=== PATIENT | male | born 1990 | race African-American/Black ===

== ENCOUNTER 2017-08-21 23:22 | Emergency (ER) | payer MEDICAID, OTHER ==
[2017-08-22] MEDS ORDERED: Ondansetron INJ* 2 MG/ML VIAL IV ONE (01:11)
[2017-08-22] MEDS ORDERED: Morphine INJ* 4 MG/ML 1 ML CARPUJECT IV ONE (01:11)
[2017-08-22] MEDS ORDERED: NS 0.9% 1000 ML* 1,000 ML IV ONE (01:11)
[2017-08-22 02:11] LABS: ABS Basophils 0.1 10^3/ul (0-0.2); ABS Eosinophils 0.1 10^3/ul (0-0.6); ABS Lymphocytes 1.9 10^3/ul (1.0-4.8); ABS Monocytes 0.5 10^3/ul (0-0.8); ABS Neutrophils 6.9 10^3/ul (1.5-7.7); ABS Nucleated RBC 0 10^3/ul; Eosinophil % 0.7 % (0-6); Hematocrit 43 % (42-52); Lymphocyte % 20.5 % (25-47); Mean Corpuscular HGB Conc 33 g/dl (31-36); Mean Corpuscular Hemoglobin 29 pg (27-31); Mean Corpuscular Volume 89 fL (80-94); Mean Platelet Volume 8 um3 (7.4-10.4); Nucleated Red Blood Cells % 0; Platelet Count 196 10^3/ul (150-450); Red Blood Count 4.78 10^6/ul (4.0-5.4); Red Cell Distribution Width 14 % (10.5-15); White Blood Count 9.5 10^3/ul (3.5-10.8)
[2017-08-22 02:27] LABS: INR 0.94 (0.77-1.02)
[2017-08-22] MEDS ORDERED: Iohexol 300* (CONTRAST) 10 ML SDV IV ONE (03:57)
[2017-08-22 06:02] LABS: Urine Appearance Cloudy; Urine Blood Negative (Negative); Urine Color Yellow; Urine Ketones Negative (Negative); Urine Protein Negative (Negative); Urine Specific Gravity 1.029 (1.010-1.030); Urine Urobilinogen Positive (Negative)
--- NOTE | 2017-08-22 06:48 | ED ---
Nichole López Thomas, scribed for Shai Handy on 08/22/17 at 0113 . Abdominal Pain/Male - HPI Summary HPI Summary: The patient is a 26 year old male presenting to the emergency department complaining of umbilical abdominal pain for the last day. The pain is constant and rated 10/10. The patient has treated the symptoms with nothing prior to arrival. The patient denies nausea, vomiting, diarrhea, constipation, fever, and dysuria. - History of Current Complaint Chief Complaint: EDAbdPain Stated Complaint: ABD PAIN Time Seen by Provider: 08/22/17 01:05 Hx Obtained From: Patient Onset/Duration: Lasting Days - 1, Still Present Timing: Constant Severity Currently: Severe Pain Intensity: 10 Pain Scale Used: 0-10 Numeric Location: Umbilical Aggravating Factor(s): Nothing Alleviating Factor(s): Other: - Palpation Associated Signs And Symptoms: Negative: Fever, Constipation, Nausea, Vomiting, Diarrhea, Other - dysuria - Allergies/Home Medications Allergies/Adverse Reactions: Allergies Allergy/AdvReac Type Severity Reaction Status Date / Time No Known Allergies Allergy Verified 11/07/12 07:20 PMH/Surg Hx/FS Hx/Imm Hx Endocrine/Hematology History: Denies: Hx Diabetes Cardiovascular History: Denies: Hx Hypertension, Hx Pacemaker/ICD History: Denies: Hx Dialysis, Hx Renal Disease Sensory History: Denies: Hx Contacts or Glasses, Hx Hearing Aid Opthamlomology History: Denies: Hx Contacts or Glasses Psychiatric History: Denies: Hx Panic Disorder - Surgical History Surgery Procedure, Year, and Place: 2008 RT SHOULDER LABRUM REPAIR CALIF Hx Anesthesia Reactions: No Infectious Disease History: No Infectious Disease History: Denies: Traveled Outside the [place] in Last 30 Days - Family History Known Family History: Negative: Other - gastrointestinal disease - Social History Lives: With Family Substance Use Type: Reports: None Review of Systems Negative: Fever Positive: Abdominal Pain. Negative: Vomiting, Diarrhea, Nausea, Other - constipation Negative: dysuria All Other Systems Reviewed And Are Negative: Yes Physical Exam - Summary Physical Exam Summary: Appearance: Well appearing, no pain distress Skin: warm, dry, reflects adequate perfusion Head/face: normal Eyes: EOMI, YASHIRA ENT: normal Neck: supple, non-tender Respiratory: CTA, breath sounds present Cardiovascular: RRR, pulses symmetrical Abdomen: Soft. He is tender to his right lower quadrant. Bowel: present Musculoskeletal: normal, strength/ROM intact Neuro: normal, sensory motor intact, A&Ox3 Triage Information Reviewed: Yes Vital Signs On Initial Exam: Initial Vitals Temp Pulse Resp BP Pulse Ox 98.1 F 98 20 136/82 98 08/21/17 23:24 08/21/17 23:24 08/21/17 23:24 08/21/17 23:24 08/21/17 23:24 Vital Signs Reviewed: Yes Diagnostics - Vital Signs Vital Signs Temp Pulse Resp BP Pulse Ox 08/21/17 23:24 98.1 F 98 20 136/82 98 - Laboratory Lab Results: Lab Results 08/22/17 08/22/17 08/22/17 Range/Units 01:50 01:50 01:50 WBC 9.5 (3.5-10.8) 10^3/ul RBC 4.78 (4.0-5.4) 10^6/ul Hgb 14.0 (14.0-18.0) g/dl Hct 43 (42-52) % MCV 89 (80-94) fL MCH 29 (27-31) pg MCHC 33 (31-36) g/dl RDW 14 (10.5-15) % Plt Count 196 (150-450) 10^3/ul MPV 8 (7.4-10.4) um3 Neut % (Auto) 73.0 (38-83) % Lymph % (Auto) 20.5 L (25-47) % [place] % (Auto) 5.2 (1-9) % Eos % (Auto) 0.7 (0-6) % Baso % (Auto) 0.6 (0-2) % Absolute Neuts (auto) 6.9 (1.5-7.7) 10^3/ul Absolute Lymphs (auto) 1.9 (1.0-4.8) 10^3/ul Absolute Monos (auto) 0.5 (0-0.8) 10^3/ul Absolute Eos (auto) 0.1 (0-0.6) 10^3/ul Absolute Basos (auto) 0.1 (0-0.2) 10^3/ul Absolute Nucleated RBC 0 10^3/ul Nucleated RBC % 0 INR (Anticoag Therapy) 0.94 (0.77-1.02) APTT 34.1 (26.0-36.3) seconds Sodium 138 (133-145) mmol/L Potassium 3.6 (3.5-5.0) mmol/L Chloride 107 (101-111) mmol/L Carbon Dioxide 26 (22-32) mmol/L Anion Gap 5 (2-11) mmol/L BUN 14 (6-24) mg/dL Creatinine 1.03 (0.67-1.17) mg/dL Est GFR ( Amer) 110.6 (>60) Est GFR (Non-Af Amer) 86.0 (>60) BUN/Creatinine Ratio 13.6 (8-20) Glucose 117 H (70-100) mg/dL Lactic Acid (0.5-2.0) mmol/L Calcium 9.2 (8.6-10.3) mg/dL Total Bilirubin 0.70 (0.2-1.0) mg/dL AST 31 (13-39) U/L ALT 38 (7-52) U/L Alkaline Phosphatase 40 (34-104) U/L Total Protein 7.0 (6.4-8.9) g/dL Albumin 4.4 (3.2-5.2) g/dL Globulin 2.6 (2-4) g/dL Albumin/Globulin Ratio 1.7 (1-3) Lipase 23 (11.0-82.0) U/L Urine Color Urine Appearance Urine pH (5-9) Ur Specific [place] (1.010-1.030) Urine Protein (Negative) Urine Ketones (Negative) Urine Blood (Negative) Urine Nitrate (Negative) Urine Bilirubin (Negative) Urine Urobilinogen (Negative) Ur Leukocyte Esterase (Negative) Urine Glucose (Negative) 08/22/17 08/22/17 Range/Units 01:50 05:40 WBC (3.5-10.8) 10^3/ul RBC (4.0-5.4) 10^6/ul Hgb (14.0-18.0) g/dl Hct (42-52) % MCV (80-94) fL MCH (27-31) pg MCHC (31-36) g/dl RDW (10.5-15) % Plt Count (150-450) 10^3/ul MPV (7.4-10.4) um3 Neut % (Auto) (38-83) % Lymph % (Auto) (25-47) % [place] % (Auto) (1-9) % Eos % (Auto) (0-6) % Baso % (Auto) (0-2) % Absolute Neuts (auto) (1.5-7.7) 10^3/ul Absolute Lymphs (auto) (1.0-4.8) 10^3/ul Absolute Monos (auto) (0-0.8) 10^3/ul Absolute Eos (auto) (0-0.6) 10^3/ul Absolute Basos (auto) (0-0.2) 10^3/ul Absolute Nucleated RBC 10^3/ul Nucleated RBC % INR (Anticoag Therapy) (0.77-1.02) APTT (26.0-36.3) seconds Sodium (133-145) mmol/L Potassium (3.5-5.0) mmol/L Chloride (101-111) mmol/L Carbon Dioxide (22-32) mmol/L Anion Gap (2-11) mmol/L BUN (6-24) mg/dL Creatinine (0.67-1.17) mg/dL Est GFR ( Amer) (>60) Est GFR (Non-Af Amer) (>60) BUN/Creatinine Ratio (8-20) Glucose (70-100) mg/dL Lactic Acid 0.9 (0.5-2.0) mmol/L Calcium (8.6-10.3) mg/dL Total Bilirubin (0.2-1.0) mg/dL AST (13-39) U/L ALT (7-52) U/L Alkaline Phosphatase (34-104) U/L Total Protein (6.4-8.9) g/dL Albumin (3.2-5.2) g/dL Globulin (2-4) g/dL Albumin/Globulin Ratio (1-3) Lipase (11.0-82.0) U/L Urine Color Yellow Urine Appearance Cloudy Urine pH 5.0 (5-9) Ur Specific [place] 1.029 (1.010-1.030) Urine Protein Negative (Negative) Urine Ketones Negative (Negative) Urine Blood Negative (Negative) Urine Nitrate Negative (Negative) Urine Bilirubin Negative (Negative) Urine Urobilinogen Positive H (Negative) Ur Leukocyte Esterase Negative (Negative) Urine Glucose Negative (Negative) Result Diagrams: 08/22/17 01:50 08/22/17 01:50 Lab Statement: Any lab studies that have been ordered have been reviewed, and results considered in the medical decision making process. - CT CT Abd/Pel CT Interpretation: No Acute Changes - 2.7 cm hyperattenuating focus hepatic segment IVB, probably a hemangioma. Borderline hepatomegaly. No bowel obstruction, colitis, diverticulitis, free fluid or free air. Normal appendix. Normal terminal ileum. Unremarkable pancreas, kidneys, and gallbladder. Dr. Handy has reviewed this report. CT Interpretation Completed By: Radiologist Abdominal Pain Fem Course/Dx - Course Assessment/Plan: The patient is a 26 year old male presenting to the emergency department complaining of umbilical abdominal pain for the last day. In the ED course the patient was given IV fluids, morphine, and Zofran. Bloodwork and urinalysis were obtained. CT Abd/Pel shows 2.7 cm hyperattenuating focus hepatic segment IVB, probably a hemangioma. Borderline hepatomegaly. No bowel obstruction, colitis, diverticulitis, free fluid or free air. Normal appendix. Normal terminal ileum. Unremarkable pancreas, kidneys, and gallbladder. The patient is diagnosed with abdominal pain. The patient is instructed to follow up with primary care. Patient is prescribed Protonix. - Diagnoses Differential Diagnosis/HQI/PQRI: Appendicitis, Diverticulitis, Pancreatitis, Renal Colic, Ureteral Stone, Urinary Tract Infection Provider Diagnoses: Abdominal pain Discharge - Discharge Plan Condition: Stable Disposition: HOME Prescriptions: Pantoprazole Sodium [Protonix] 20 mg PO ONCE #30 tab Patient Education Materials: Abdominal Pain (ED) Referrals: Syl Kapoor MD [Primary Care Provider] - 3 Days Additional Instructions: Follow up with Dr. Kapoor in three days. Return to the emergency department for any new or worsening symptoms. The documentation as recorded by the Nichole cohn Thomas accurately reflects the service I personally performed and the decisions made by Ole cruz Emmanuel.
[2017-08-22 06:55] VITALS: BP 117/69
--- NOTE | 2017-08-22 08:20 | RAD ---
Indication: Right lower quadrant tenderness. Contrast: Administered 150.0 ml of OMNIPAQUE 300 mg/ml CT of the abdomen and pelvis was performed after oral and IV contrast administration. Coronal and sagittal reconstructed images were obtained. There are no prior studies available for comparison. The lung bases demonstrate no pleural fluid, nodules or masses. Heart is of normal size without evidence of pericardial effusion. Liver is normal in size. There is a hyperdense lesion in the medial segment of the left lobe of liver just adjacent to the falciform ligament likely representing a hemangioma. Ultrasound could BE performed to confirm this impression if clinically warranted. No other lesions are noted. No intrahepatic ductal dilatation is noted. The gallbladder demonstrates no gallstones, pericholecystic fluid or wall thickening. The common duct is not dilated. The pancreas demonstrates no mass or pancreatic duct dilatation. The spleen is normal in size. No adrenal masses are noted. The kidneys demonstrate symmetric nephrograms without focal lesions. No hydronephrosis is noted. Aorta and inferior vena cava are unremarkable. No dilated loops of bowel are noted. No retroperitoneal adenopathy is noted. CT of the pelvis demonstrates normal appearing appendix. No dilated loops of bowel are noted. Prostate is unremarkable. No hernias are noted. Terminal ileum is unremarkable. No free fluid is identified. The bony structures are otherwise unremarkable. IMPRESSION: Normal appearing appendix. Hypervascular lesion in the medial segment of left lobe of liver just adjacent to the gallbladder fossa likely represents a hemangioma. Correlation with ultrasound may BE helpful if clinically warranted. No other masses or fluid collections are noted.
== END 2017-08-22 06:57 | disposition home or self-care (01) ==
LOC: ED 23:22
DX: R10.31 Right lower quadrant pain (principal); R10.33 Periumbilical pain
CPT/HCPCS: 36415; 74177; 80053; 81003; 83605; 83690; 85025; 85610; 85730; 96361; 96374; 96375; 99283; J2270; J2405; Q9967

== ENCOUNTER 2017-11-10 16:36 | Emergency (ER) | payer MEDICAID ==
[2017-11-10 17:51] LABS: Urine Appearance Cloudy; Urine Blood 3+ (Negative); Urine Ketones Negative (Negative); Urine Protein 1+(30 mg/dL) (Negative); Urine Specific Gravity 1.011 (1.010-1.030); Urine Urobilinogen Negative (Negative)
[2017-11-10 18:01] LABS: Urine Color Red
[2017-11-10] MEDS ORDERED: Ciprofloxacin TAB* 500 MG PO ONE ×2 (18:35)
--- NOTE | 2017-11-10 18:44 | ED ---
Mejia López Jennifer, scribed for Bryan Jimenez MD on 11/10/17 at 1737 . GI/ HPI - HPI Summary HPI Summary: The patient is a 27 year old male who presents hematuria and difficulty urinating after two surgeries on his bladder this week. The patient reports that two weeks ago, he was sent from [facility] to [place] for surgery. He was told at [place] he had two bleeding spots in his bladder and one in his urethra from a catheterization. The patient has had a catheter until six days ago. However, five days ago, he felt there was a blockage upon urinating. Two days ago, he went back to [place] for a second surgery but is now urinating blood. He was able to pee today but explains that as he is urinating, it will slow down and become more difficult. The patient denies any pain in the ED. - History of Current Complaint Chief Complaint: EDUrogenitalProblems Time Seen by Provider: 11/10/17 17:17 Stated Complaint: URINATING BLOOD Hx Obtained From: Patient Onset/Duration: Started Weeks Ago - two weeks ago, Still Present Timing: Constant Severity: Moderate Current Severity: Moderate Pain Intensity: 0 Associated Signs and Symptoms: Positive: Hematuria, Other: - Difficulty urinating Aggravating Factor(s): Nothing Alleviating Factor(s): Nothing - Allergy/Home Medications Allergies/Adverse Reactions: Allergies Allergy/AdvReac Type Severity Reaction Status Date / Time No Known Allergies Allergy Verified 11/10/17 16:54 PMH/Surg Hx/FS Hx/Imm Hx Endocrine/Hematology History: Denies: Hx Diabetes Cardiovascular History: Denies: Hx Hypertension, Hx Pacemaker/ICD History: Denies: Hx Dialysis, Hx Renal Disease Sensory History: Denies: Hx Contacts or Glasses, Hx Hearing Aid Opthamlomology History: Denies: Hx Contacts or Glasses Psychiatric History: Denies: Hx Panic Disorder - Surgical History Surgery Procedure, Year, and Place: 2008 RT SHOULDER LABRUM REPAIR CALIFX2 Hx Anesthesia Reactions: No Infectious Disease History: No Infectious Disease History: Denies: Traveled Outside the [place] in Last 30 Days - Family History Known Family History: Negative: Other - disease - Social History Alcohol Use: Occasionally Alcohol Amount: 4-5drinks per week Substance Use Type: Reports: None Smoking Status (MU): Light Every Day Tobacco Smoker Review of Systems Negative: Fever Genitourinary: Other - Difficulty urinating Positive: hematuria All Other Systems Reviewed And Are Negative: Yes Physical Exam - Summary Physical Exam Summary: General: well-appearing, no pain distress Skin: warm, color reflects adequate perfusion, dry Head: normal Eyes: EOMI, YASHIRA ENT: normal Neck: supple, nontender Respiratory: CTA, breath sounds present Cardiovascular: RRR Abdomen: soft, nontender Bowel: present Musculoskeletal: normal, strength/ROM intact Neurological: normal, sensory/motor intact, A&O x3 Psychological: affect/mood appropriate Triage Information Reviewed: Yes Vital Signs On Initial Exam: Initial Vitals Temp Pulse Resp BP Pulse Ox 97.5 F 74 18 159/77 99 11/10/17 16:38 11/10/17 16:38 11/10/17 16:38 11/10/17 16:38 11/10/17 16:38 Vital Signs Reviewed: Yes Diagnostics - Vital Signs Vital Signs Temp Pulse Resp BP Pulse Ox 11/10/17 17:28 72 142/71 100 11/10/17 17:01 70 148/81 99 11/10/17 17:00 71 99 11/10/17 16:54 70 99 11/10/17 16:38 97.5 F 74 18 159/77 99 - Laboratory Lab Results: Lab Results 11/10/17 Range/Units 17:26 Urine Color Red A Urine Appearance Cloudy Urine pH 7.0 (5-9) Ur Specific [place] 1.011 (1.010-1.030) Urine Protein 1+(30 mg/dl) A (Negative) Urine Ketones Negative (Negative) Urine Blood 3+ A (Negative) Urine Nitrate Negative (Negative) Urine Bilirubin Negative (Negative) Urine Urobilinogen Negative (Negative) Ur Leukocyte Esterase Negative (Negative) Urine WBC (Auto) 3+(>20/hpf) A (Absent) Urine RBC (Auto) 3+(>10/hpf) A (Absent) Amorphous Crystals Present A (Absent) Urine Bacteria Absent (Absent) Urine Glucose Negative (Negative) Lab Statement: Any lab studies that have been ordered have been reviewed, and results considered in the medical decision making process. GIGU Course/Dx - Course Course Of Treatment: Medications reviewed. BP noted and advised to follow up with PCP. DISCUSSED WITH [facility], DR WHEAT, DR FAY'S PARTNER. HE RECOMMENDED CIPRO RX X 10 DAYS AND F/U WITH DR FAY. THIS WAS ALL DISCUSSED WITH THE PATIENT. HE WOULD LIKE TO FOLLOW UP LOCALLY; [facility] INFORMATION FOR FOLLOW UP IS GIVEN ON THE DISCHARGE PAPERWORK. MR HILLIARD KNOWS TO GET SEEN SOONER FOR ANY WORSENING OF HIS CONDITION. - Diagnoses Provider Diagnoses: Elevated BP without diagnosis of hypertension, Hematuria - Physician Notifications Discussed Care Of Patient With: Edgar Wheat MD Time Discussed With Above Provider: 18:18 Instructed by Provider To: Other - Dr. Langston, urology, recommended the patient start on antibiotics and follow up with Dr. Fay, urology, at [place]. Discharge - Sign-Out/Discharge Documenting (check all that apply): Discharge - Discharge Plan Condition: Stable Disposition: HOME Prescriptions: Ciprofloxacin TAB* [Cipro 500 MG TAB*] 500 mg PO BID #18 tab Patient Education Materials: Hematuria (ED) Referrals: Syl Kapoor MD [Primary Care Provider] - Bill Jc MD [Medical Doctor] - Mahad Hargrove MD [Medical Doctor] - Additional Instructions: FOLLOW UP WITH YOUR UROLOGIST. CALL UROLOGY IN THE MORNING TO ARRANGE FOLLOW UP. RETURN TO THE EMERGENCY DEPARTMENT FOR ANY WORSENING OF YOUR CONDITION; PAIN, FEVER, INABILITY TO URINATE, YOU FEEL ILL OR QUESTIONS OR CONCERNS. - Billing Disposition and Condition Condition: STABLE Disposition: HOME The documentation as recorded by the Mejia cohn Jennifer accurately reflects the service I personally performed and the decisions made by me, Bryan Jimenez MD.
[2017-11-10 18:54] VITALS: BP 131/91
== END 2017-11-10 18:53 | disposition home or self-care (01) ==
LOC: ED 16:36
DX: R31.9 Hematuria, unspecified (principal); Z87.891 Personal history of nicotine dependence; R03.0 Elevated blood-pressure reading, without diagnosis of hypertension
CPT/HCPCS: 81003; 81015; 87086; 99283; A9270-GY

== ENCOUNTER 2017-11-22 01:47 | Emergency (ER) | payer MEDICAID ==
[2017-11-22] MEDS ORDERED: Morphine INJ* 10 MG/ML 1 ML CARPUJECT IV ONE (02:12)
[2017-11-22] MEDS ORDERED: Ondansetron INJ* 2 MG/ML VIAL IV ONE (02:14)
[2017-11-22] MEDS ORDERED: Morphine VIAL* 4 MG/ML VIAL (1 ml vial) IV ONE ×4 (02:18→02:34)
[2017-11-22] MEDS ORDERED: Ondansetron INJ* 2 MG/ML VIAL ONE ×2 (02:18)
[2017-11-22] MEDS ORDERED: HYDROmorphone INJ* 2 MG/ML CARPUJECT SYRINGE IV SLOW PU ONE ×3 (02:38→04:36)
[2017-11-22 02:40] LABS: Urine Appearance Turbid; Urine Color Red
[2017-11-22] MEDS ORDERED: HYDROmorphone INJ* 2 MG/ML CARPUJECT SYRINGE ONE ×2 (02:41)
[2017-11-22 02:53] LABS: Urine Blood 3+ (Negative)
[2017-11-22 02:55] LABS: Urine Ketones Negative (Negative); Urine Protein 3+(>=500 mg/dL) (Negative); Urine Specific Gravity 1.037 (1.010-1.030); Urine Urobilinogen Negative (Negative)
[2017-11-22] MEDS: NS 0.9% 1000 ML* 2,000 ML IV ONE ×2 (02:59→03:00)
[2017-11-22 03:04] LABS: ABS Basophils 0.1 10^3/ul (0-0.2); ABS Eosinophils 0.1 10^3/ul (0-0.6); ABS Lymphocytes 4.4 10^3/ul (1.0-4.8); ABS Monocytes 0.8 10^3/ul (0-0.8); ABS Neutrophils 4.1 10^3/ul (1.5-7.7); ABS Nucleated RBC 0 10^3/ul; Eosinophil % 1.2 % (0-6); Hematocrit 43 % (42-52); Hemoglobin 14.4 g/dl (14.0-18.0); Lymphocyte % 46.4 % (25-47); Mean Corpuscular HGB Conc 33 g/dl (31-36); Mean Corpuscular Hemoglobin 30 pg (27-31); Mean Corpuscular Volume 89 fL (80-94); Mean Platelet Volume 8.4 um3 (7.4-10.4); Nucleated Red Blood Cells % 0; Platelet Count 244 10^3/ul (150-450); Red Blood Count 4.86 10^6/ul (4.0-5.4); Red Cell Distribution Width 14 % (10.5-15); White Blood Count 9.5 10^3/ul (3.5-10.8)
[2017-11-22 03:05] LABS: INR 0.91 (0.77-1.02)
[2017-11-22 03:13] LABS: EGFR Non-African American 68.3 (>60)
--- NOTE | 2017-11-22 06:43 | ED ---
Eddie López Rebecca, scribed for Shai Handy on 11/22/17 at 0241 . GI/ HPI - HPI Summary HPI Summary: Pt is a 27 y/o M who presents to ED c/o difficulty urinating, hematuria, and abdominal pain. Difficulty urinating began about 1.5 hours [employer] and abdominal pain is suprapubic, described as "bladder spasms." Pain is currently severe, ranked 10/10. Prior similar intermittent episodes for the past month. He began having difficulty urinating on October 30, with surgery that day in [place] after which he started Cephalexin and had a catheter placed until November 04. Began having difficulty urinating again on November 05, returned to the hospital on November 07 and had another surgery on November 08 after which he has been on Cipro and pyridium. Has been asymptomatic for about the last week. - History of Current Complaint Chief Complaint: EDUrogenitalProblems Time Seen by Provider: 11/22/17 02:23 Stated Complaint: UNABLE TO URINATE Hx Obtained From: Patient Onset/Duration: Started Hours Ago - 1.5 hours, Still Present Current Severity: Severe Pain Intensity: 10 Location of Pain: Suprapubic - Bladder Pain Characteristics: Other: - Spasmodic Associated Signs and Symptoms: Positive: Other: - Hematuria Aggravating Factor(s): Nothing Alleviating Factor(s): Nothing - Allergy/Home Medications Allergies/Adverse Reactions: Allergies Allergy/AdvReac Type Severity Reaction Status Date / Time No Known Allergies Allergy Verified 11/10/17 16:54 PMH/Surg Hx/FS Hx/Imm Hx Endocrine/Hematology History: Denies: Hx Diabetes Cardiovascular History: Denies: Hx Hypertension, Hx Pacemaker/ICD History: Denies: Hx Dialysis, Hx Renal Disease Sensory History: Denies: Hx Contacts or Glasses, Hx Hearing Aid Opthamlomology History: Denies: Hx Contacts or Glasses Psychiatric History: Denies: Hx Panic Disorder - Surgical History Surgery Procedure, Year, and Place: 2008 RT SHOULDER LABRUM REPAIR CALIFX2 Hx Anesthesia Reactions: No Infectious Disease History: No Infectious Disease History: Denies: Traveled Outside the [place] in Last 30 Days - Family History Known Family History: Negative: Other - disease - Social History Alcohol Use: Occasionally Alcohol Amount: 4-5drinks per week Substance Use Type: Reports: None Smoking Status (MU): Light Every Day Tobacco Smoker Review of Systems Positive: Abdominal Pain - Bladder spasms Positive: hematuria, other - Difficulty urinating All Other Systems Reviewed And Are Negative: Yes Physical Exam - Summary Physical Exam Summary: Appearance: Well appearing, no pain distress Skin: warm, dry, reflects adequate perfusion Head/face: normal Eyes: EOMI, YASHIRA ENT: normal Neck: supple, non-tender Respiratory: CTA, breath sounds present Cardiovascular: RRR, pulses symmetrical Abdomen: diffuse abdominal tenderness, soft, gross hematuria Bowel: present Musculoskeletal: normal, strength/ROM intact Neuro: normal, sensory motor intact, A&Ox3 Triage Information Reviewed: Yes Vital Signs On Initial Exam: Initial Vitals Temp Pulse Resp BP Pulse Ox 97.8 F 113 22 155/78 100 11/22/17 01:53 11/22/17 01:53 11/22/17 01:53 11/22/17 01:53 11/22/17 01:53 Vital Signs Reviewed: Yes Diagnostics - Vital Signs Vital Signs Temp Pulse Resp BP Pulse Ox 11/22/17 01:53 97.8 F 113 22 155/78 100 - Laboratory Lab Results: Lab Results 11/22/17 11/22/17 11/22/17 Range/Units 02:29 02:29 02:29 WBC 9.5 (3.5-10.8) 10^3/ul RBC 4.86 (4.0-5.4) 10^6/ul Hgb 14.4 (14.0-18.0) g/dl Hct 43 (42-52) % MCV 89 (80-94) fL MCH 30 (27-31) pg MCHC 33 (31-36) g/dl RDW 14 (10.5-15) % Plt Count 244 (150-450) 10^3/ul MPV 8.4 (7.4-10.4) um3 Neut % (Auto) 43.7 (38-83) % Lymph % (Auto) 46.4 (25-47) % [place] % (Auto) 8.0 H (0-7) % Eos % (Auto) 1.2 (0-6) % Baso % (Auto) 0.7 (0-2) % Absolute Neuts (auto) 4.1 (1.5-7.7) 10^3/ul Absolute Lymphs (auto) 4.4 (1.0-4.8) 10^3/ul Absolute Monos (auto) 0.8 (0-0.8) 10^3/ul Absolute Eos (auto) 0.1 (0-0.6) 10^3/ul Absolute Basos (auto) 0.1 (0-0.2) 10^3/ul Absolute Nucleated RBC 0 10^3/ul Nucleated RBC % 0 INR (Anticoag Therapy) 0.91 (0.77-1.02) APTT 35.4 (26.0-36.3) seconds Sodium (139-145) mmol/L Potassium (3.5-5.0) mmol/L Chloride (101-111) mmol/L Carbon Dioxide (22-32) mmol/L Anion Gap (2-11) mmol/L BUN (6-24) mg/dL Creatinine (0.67-1.17) mg/dL Est GFR ( Amer) (>60) Est GFR (Non-Af Amer) (>60) BUN/Creatinine Ratio (8-20) Glucose (70-100) mg/dL Lactic Acid (0.5-2.0) mmol/L Calcium (8.6-10.3) mg/dL Total Bilirubin (0.2-1.0) mg/dL AST (13-39) U/L ALT (7-52) U/L Alkaline Phosphatase (34-104) U/L Total Protein (6.4-8.9) g/dL Albumin (3.2-5.2) g/dL Globulin (2-4) g/dL Albumin/Globulin Ratio (1-3) Lipase (11.0-82.0) U/L Urine Color Red A Urine Appearance Turbid Urine pH 8.0 (5-9) Ur Specific Bryan 1.037 H (1.010-1.030) Urine Protein 3+(>=500 mg/dl) A (Negative) Urine Ketones Negative (Negative) Urine Blood 3+ A (Negative) Urine Nitrate Negative (Negative) Urine Bilirubin Negative (Negative) Urine Urobilinogen Negative (Negative) Ur Leukocyte Esterase Trace A (Negative) Urine WBC (Auto) Trace(0-5/hpf) (Absent) Urine RBC (Auto) 3+(>10/hpf) A (Absent) Urine Bacteria Absent (Absent) Urine Glucose 2+(150 mg/dl) A (Negative) Urine Ascorbic Acid Not Reportable 11/22/17 11/22/17 Range/Units 02:29 02:29 WBC (3.5-10.8) 10^3/ul RBC (4.0-5.4) 10^6/ul Hgb (14.0-18.0) g/dl Hct (42-52) % MCV (80-94) fL MCH (27-31) pg MCHC (31-36) g/dl RDW (10.5-15) % Plt Count (150-450) 10^3/ul MPV (7.4-10.4) um3 Neut % (Auto) (38-83) % Lymph % (Auto) (25-47) % [place] % (Auto) (0-7) % Eos % (Auto) (0-6) % Baso % (Auto) (0-2) % Absolute Neuts (auto) (1.5-7.7) 10^3/ul Absolute Lymphs (auto) (1.0-4.8) 10^3/ul Absolute Monos (auto) (0-0.8) 10^3/ul Absolute Eos (auto) (0-0.6) 10^3/ul Absolute Basos (auto) (0-0.2) 10^3/ul Absolute Nucleated RBC 10^3/ul Nucleated RBC % INR (Anticoag Therapy) (0.77-1.02) APTT (26.0-36.3) seconds Sodium 139 (139-145) mmol/L Potassium 3.7 (3.5-5.0) mmol/L Chloride 106 (101-111) mmol/L Carbon Dioxide 27 (22-32) mmol/L Anion Gap 6 (2-11) mmol/L BUN 16 (6-24) mg/dL Creatinine 1.25 H (0.67-1.17) mg/dL Est GFR ( Amer) 87.8 (>60) Est GFR (Non-Af Amer) 68.3 (>60) BUN/Creatinine Ratio 12.8 (8-20) Glucose 111 H (70-100) mg/dL Lactic Acid 1.1 (0.5-2.0) mmol/L Calcium 9.7 (8.6-10.3) mg/dL Total Bilirubin 0.40 (0.2-1.0) mg/dL AST 31 (13-39) U/L ALT 47 (7-52) U/L Alkaline Phosphatase 52 (34-104) U/L Total Protein 7.6 (6.4-8.9) g/dL Albumin 4.8 (3.2-5.2) g/dL Globulin 2.8 (2-4) g/dL Albumin/Globulin Ratio 1.7 (1-3) Lipase 38 (11.0-82.0) U/L Urine Color Urine Appearance Urine pH (5-9) Ur Specific Bryan (1.010-1.030) Urine Protein (Negative) Urine Ketones (Negative) Urine Blood (Negative) Urine Nitrate (Negative) Urine Bilirubin (Negative) Urine Urobilinogen (Negative) Ur Leukocyte Esterase (Negative) Urine WBC (Auto) (Absent) Urine RBC (Auto) (Absent) Urine Bacteria (Absent) Urine Glucose (Negative) Urine Ascorbic Acid Result Diagrams: 11/22/17 02:29 11/22/17 02:29 Lab Statement: Any lab studies that have been ordered have been reviewed, and results considered in the medical decision making process. - CT CT Abd/Pel CT Interpretation: Positive (See Comments) - Tiny nonobstructing left renal stone. Presumed large blood clot in the bladder. ED physician reviewed this radiology report. CT Interpretation Completed By: Radiologist Re-Evaluation - Re-Evaluation First Eval Re-Evaluation Time: 04:16 Comment: Discussed CT results. Second Eval Re-Evaluation Time: 06:33 Comment: Pt continues to be in pain and his catheter is not draining anything. GIGU Course/Dx - Course Assessment/Plan: Pt is a 27 y/o M who presents to ED c/o difficulty urinating, hematuria, and abdominal pain. Difficulty urinating began about 1.5 hours [employer] and abdominal pain is suprapubic, described as "bladder spasms." Pain is currently severe, ranked 10/10. Prior similar episodes for the past month. He began having difficulty urinating on October 30, with surgery that day in [place] after which he started Cephalexin and had a catheter placed until November 04. Began having difficulty urinating on November 05, returned to the hospital on November 07 and had another surgery on November 08 after which he has been on Cipro and pyridium. Has been asymptomatic for about 1 last week. Blood work and UA were done. CT abd/pel reveal: Tiny nonobstructing left renal stone. Presumed large blood clot in the bladder. Discussed care of pt with Dr. Jc who first recommends a 22 gauge haynes catheter, then requested records from [employer] and lastly agrees to come in to see the pt. Pt will be signed out to Dr. Enciso , pending dispo, awaiting consultation. - Diagnoses Differential Diagnoses - Male: Other - urinary retention/hematuria Provider Diagnoses: Urinary retention, Hematuria - Physician Notifications Discussed Care Of Patient With: Bill Jc Time Discussed With Above Provider: 04:22 Instructed by Provider To: Other - Recommends a 22 gauge haynes catheter. Discussed care of pt with Dr. Jc again at 0535 who requested records from [employer]. Discussed care of pt with Dr. Jc again at 0638 who will come in to see the pt. - Critical Care Time Critical Care Time: 30-74 min Discharge - Sign-Out/Discharge Documenting (check all that apply): Sign-Out Patient Signing out patient TO: Kj Enciso - Awaiting Dr. Jc consult - Discharge Plan Condition: Stable Referrals: Syl Kapoor MD [Primary Care Provider] - - Billing Disposition and Condition Condition: STABLE The documentation as recorded by the Eddie cohn Rebecca accurately reflects the service I personally performed and the decisions made by , Shai Handy.
--- NOTE | 2017-11-22 08:11 | RAD ---
CLINICAL HISTORY: Hematuria and right flank pain COMPARISON: CT abdomen pelvis August 22, 2017 TECHNIQUE: Noncontrast CT examination of the abdomen and pelvis from the lung bases through the initial tuberosities. FINDINGS: VISUALIZED LUNG BASES: The visualized lung bases are grossly clear. There is no pleural effusion. ABDOMEN AND PELVIS: Evaluation of the solid organs and vasculature is limited without intravenous contrast. The liver, spleen, pancreas and adrenal glands are grossly normal in appearance. The gallbladder is normal. At the mid-level left renal collecting system there is a 4 mm calcification. There is no significant hydronephrosis bilaterally. There is hyperattenuating material, amorphous in shape filling approximately one third of the urinary bladder. The small and large bowel are not distended.The patient's gas-filled appendix is identified in the right lower quadrant measuring 6 mm in diameter (axial image 102 and coronal image 34). There is no gross retroperitoneal or mesenteric lymphadenopathy. The pelvic viscera is normal in appearance. The abdominal aorta and iliac arteries are normal in course and diameter. There are no sinister bone lesions. IMPRESSION: 1. Hyperattenuating material filling much of the dependent third of the urinary bladder. Diagnostic possibilities include hemorrhage and a soft tissue mass. Further characterization can be made with ultrasound and/or direct visualization. 2. Nonobstructing calculus at the mid-level left renal collecting system.
[2017-11-22] MEDS ORDERED: Acetaminophen TAB* 325 MG PO ONE (08:26)
--- NOTE | 2017-11-22 09:15 | ED ---
I, Arlene Qureshi, scribed for Kj Enciso MD on 11/22/17 at 0912 . Progress - Progress Note Progress Note: Dr. Jc saw the pt for hematuria. The pt was irrigated and a clot was removed from the bladder. Pt irrigated clean and he will follow-up in urology office. Re-Evaluation - Re-Evaluation First Eval Re-Evaluation Time: 04:16 Comment: Discussed CT results. Second Eval Re-Evaluation Time: 06:33 Comment: Pt continues to be in pain and his catheter is not draining anything. Course/Dx - Course Course Of Treatment: Patient had gross hematuria causing urinary retention. A Haynes catheter was placed. They irrigated this out and then had occlusion of the catheter. The urologist came and irrigated out catheter Haynes. Urine cleared. He was observed over the course of more than 1 hour and had no return of bleeding. The urologist would like to have him discharged will follow him up shortly in the office. - Diagnoses Provider Diagnoses: Urinary retention, Giovanni hematuria - Provider Notifications Discussed Care Of Patient With: Bill Jc Instructed by Provider To: Other - Recommends a 22 gauge haynes catheter. Discussed care of pt with Dr. Jc again at 0535 who requested records from [employer]. Discussed care of pt with Dr. Jc again at 0638 who will come in to see the pt. - Critical Care Time Critical Care Time: 30-74 min Discharge - Sign-Out/Discharge Documenting (check all that apply): Discharge/Admit/Transfer - Discharge - Discharge Plan Condition: Improved Disposition: HOME Prescriptions: Oxybutynin TAB* [Ditropan TAB*] 5 mg PO BID #10 tab Patient Education Materials: Hematuria (ED) Referrals: Syl Kapoor MD [Primary Care Provider] - 1 Day Additional Instructions: Return if unable to urinate, bleeding in the urine, worse or other concerns. Call the urologist today to schedule an outpatient follow-up. Catheter likely will be in 5-7 days. - Billing Disposition and Condition Condition: STABLE Disposition: HOME The documentation as recorded by the Titus cohn Stephanie accurately reflects the service I personally performed and the decisions made by me, Kj Enciso MD.
[2017-11-22 09:17] VITALS: BP 131/62
--- NOTE | 2017-11-22 15:32 | CONS ---
EMERGENCY ROOM CONSULTATION NOTE: DATE OF CONSULT: 11/22/17. DIAGNOSIS: Clot urinary retention. PROCEDURE: Catheter placement and irrigation clot retention. HISTORY OF PRESENT ILLNESS: Mr. Choi is a 27-year-old male who presented to [place] [facility] about 1 month ago with gross hematuria and clot urinary retention. It was not clear if that was the result of a urethral injury. Because of no urological coverage that day, he was transferred to [facility]. There, he had a cystoscopy and was noted to have gross hematuria originating from 2 bleeding spots in the bladder. The operative report is not available to me but the family was told that this was a benign condition. Following fulguration of the lesions, he was sent home with the Pitts catheter. He presented back 2 weeks later to [place] [facility] with recurrent gross hematuria. He was taken back to the operating room and underwent a cystoscopy and fulguration of the bleeders and was sent home without the Pitts catheter. He did well until 1 week ago when he presented back to [place] [facility] with recurrent gross hematuria. He was managed conservatively. He improved. He presented early this morning to [facility] with recurrence of gross hematuria and clot urinary retention. Noncontrast CT of the abdomen and pelvis showed a 3-mm non-obstructing calculus in the lower pole calyx of the left kidney. There was no hydronephrosis and no renal masses and no dilatation of the ureters. The bladder was distended and several clots were noted inside the bladder. Patient had a #22 3-way Pitts catheter placed and the nurses attempted to irrigate him. With unsuccessful irrigation, an urgent urology consultation was requested. Patient's past history is negative. There is no history of any previous history of gross hematuria or renal symptoms. No history of any bleeding tendencies. PHYSICAL EXAM: The patient was very uncomfortable and has a distended bladder. He had a Pitts catheter in place, it was not draining. A 22-Pitts catheter was removed and I inserted a 24-Pitts catheter. Active irrigation was performed evacuating about 120 mL of clot from his bladder. The manual irrigation was continued until the returns were completely clear. The patient was then observed in the emergency room for about 2 hours. His urine has remained completely clear and has had no recurrent hematuria. We tried to obtain the records from [facility]. We got the records from the emergency room. There was no mention in the emergency room records about any bladder tumor noted on the previous cystoscopies. IMPRESSION: I assume that the 2 episodes of hematuria that occurred following the initial fulguration was likely to be secondary to the scab of the fulguration that is fallen off too soon and the hematuria occurred. The plan is to discharge the patient home with the Pitts catheter drainage. I will leave the catheter in until his bladder is healed. We will remove the catheter in 1 week. If the hematuria recurs, repeat cystoscopy will need to be performed. [id number]/CPS #: [id number]
== END 2017-11-22 09:29 | disposition home or self-care (01) ==
LOC: ED 01:47
DX: R33.9 Retention of urine, unspecified (principal); R31.9 Hematuria, unspecified; N32.89 Other specified disorders of bladder; F17.210 Nicotine dependence, cigarettes, uncomplicated; N20.0 Calculus of kidney
CPT/HCPCS: 36415; 51702; 74176; 80053; 81003; 81015; 83605; 83690; 85025; 85610; 85730; 87086; 96361; 96374; 96375; 96376; 99283; A9270-GY; J1170; J2270; J2405

== ENCOUNTER 2017-11-30 23:47 | Day surgery (SDC) | payer MEDICAID ==
[2017-12-01] MEDS ORDERED: HYDROmorphone INJ* 1 MG/ML CARPUJECT SYRINGE IV ONE (00:24)
[2017-12-01] MEDS ORDERED: Ondansetron ODT TAB* 4 MG PO ONE (00:24)
[2017-12-01] MEDS ORDERED: HYDROmorphone INJ* 2 MG/ML CARPUJECT SYRINGE ONE (00:43)
[2017-12-01] MEDS ORDERED: HYDROmorphone INJ* 2 MG/ML CARPUJECT SYRINGE IV SLOW PU ONE ×3 (00:44→06:54)
[2017-12-01 00:45] LABS: ABS Basophils 0.1 10^3/ul (0-0.2); ABS Eosinophils 0.1 10^3/ul (0-0.6); ABS Lymphocytes 2.8 10^3/ul (1.0-4.8); ABS Monocytes 0.7 10^3/ul (0-0.8); ABS Neutrophils 4.6 10^3/ul (1.5-7.7); ABS Nucleated RBC 0 10^3/ul; Eosinophil % 1.3 % (0-6); Hematocrit 38 % (42-52); Hemoglobin 12.8 g/dl (14.0-18.0); Lymphocyte % 33.6 % (25-47); Mean Corpuscular HGB Conc 34 g/dl (31-36); Mean Corpuscular Hemoglobin 30 pg (27-31); Mean Corpuscular Volume 89 fL (80-94); Mean Platelet Volume 7.4 um3 (7.4-10.4); Nucleated Red Blood Cells % 0.1; Platelet Count 265 10^3/ul (150-450); Red Blood Count 4.28 10^6/ul (4.0-5.4); Red Cell Distribution Width 14 % (10.5-15); White Blood Count 8.3 10^3/ul (3.5-10.8)
[2017-12-01 00:55] LABS: INR 0.98 (0.77-1.02)
[2017-12-01 01:01] LABS: EGFR Non-African American 66.4 (>60)
[2017-12-01] MEDS: NS 0.9% 1000 ML* 2,000 ML IV ONE ×2 (01:30→04:00)
[2017-12-01 06:20] LABS: Urine Appearance Cloudy; Urine Blood 2+ (Negative); Urine Ketones Trace (Negative); Urine Protein 3+(>=500 mg/dL) (Negative); Urine Specific Gravity 1.018 (1.010-1.030); Urine Urobilinogen Negative (Negative)
[2017-12-01 06:22] LABS: Urine Color Red
--- NOTE | 2017-12-01 07:06 | ED ---
Eddie López Rebecca, scribed for Bryan Jimenez MD on 12/01/17 at 0017 . GI/ HPI - HPI Summary HPI Summary: Pt is a 27 y/o M BIBA who presents to ED c/o difficulty urinating, dysuria and hematuria. 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 Associated pain is currently severe, ranked 10/10. Pt has had multiple incidences of similar episodes recently. The last time symptoms occurred was 11/22 during which he had a haynes inserted and flushed with the haynes being removed 3 days ago (11/28). Confirms he has been urinating normally since catheter removal. He has had cauterizations for 3 holes, 2 in the bladder (done in [place]) and 1 in the urethra. - History of Current Complaint Chief Complaint: EDUrogenitalProblems Time Seen by Provider: 12/01/17 00:12 Stated Complaint: UNABLE TO URINATE Hx Obtained From: Patient Onset/Duration: Started Hours Ago - 1.5 hours ago, Still Present Current Severity: Severe Pain Intensity: 10 Associated Signs and Symptoms: Positive: Hematuria, Dysuria, Other: - Difficulty urinating Aggravating Factor(s): Nothing Alleviating Factor(s): Nothing - Allergy/Home Medications Allergies/Adverse Reactions: Allergies Allergy/AdvReac Type Severity Reaction Status Date / Time No Known Allergies Allergy Verified 11/10/17 16:54 Home Medications: Home Medications NK [No Home Medications Reported] 12/01/17 [History Confirmed 12/01/17] PMH/Surg Hx/FS Hx/Imm Hx Endocrine/Hematology History: Denies: Hx Diabetes Cardiovascular History: Denies: Hx Hypertension, Hx Pacemaker/ICD History: Denies: Hx Dialysis, Hx Renal Disease Sensory History: Denies: Hx Contacts or Glasses, Hx Hearing Aid Opthamlomology History: Denies: Hx Contacts or Glasses Psychiatric History: Denies: Hx Panic Disorder - Surgical History Surgery Procedure, Year, and Place: 2008 RT SHOULDER LABRUM REPAIR CALIFX2 Hx Anesthesia Reactions: No Infectious Disease History: No Infectious Disease History: Denies: Traveled Outside the US in Last 30 Days - Family History Known Family History: Negative: Other - disease - Social History Alcohol Use: Occasionally Alcohol Amount: 4-5drinks per week Substance Use Type: Reports: None Smoking Status (MU): Light Every Day Tobacco Smoker Review of Systems Negative: Fever Positive: dysuria, hematuria, other - Difficulty urinating All Other Systems Reviewed And Are Negative: Yes Physical Exam - Summary Physical Exam Summary: General: well-appearing, moderate pain distress Skin: warm, color reflects adequate perfusion, dry Head: normal Eyes: EOMI, YASHIRA ENT: normal Neck: supple, nontender Respiratory: CTA, breath sounds present Cardiovascular: RRR : Bright red blood coming from the urethra Musculoskeletal: normal, strength/ROM intact Neurological: normal, sensory/motor intact, A&O x3 Psychological: affect/mood appropriate Triage Information Reviewed: Yes Vital Signs On Initial Exam: Initial Vitals Temp Pulse Resp BP Pulse Ox 97.0 F 85 24 166/106 99 11/30/17 23:57 11/30/17 23:57 11/30/17 23:57 11/30/17 23:57 11/30/17 23:57 Vital Signs Reviewed: Yes Diagnostics - Vital Signs Vital Signs Temp Pulse Resp BP Pulse Ox 11/30/17 23:57 97.0 F 85 24 166/106 99 - Laboratory Lab Results: Lab Results 12/01/17 12/01/17 12/01/17 Range/Units 00:37 00:37 00:37 WBC 8.3 (3.5-10.8) 10^3/ul RBC 4.28 (4.0-5.4) 10^6/ul Hgb 12.8 L (14.0-18.0) g/dl Hct 38 L (42-52) % MCV 89 (80-94) fL MCH 30 (27-31) pg MCHC 34 (31-36) g/dl RDW 14 (10.5-15) % Plt Count 265 (150-450) 10^3/ul MPV 7.4 (7.4-10.4) um3 Neut % (Auto) 55.2 (38-83) % Lymph % (Auto) 33.6 (25-47) % [place] % (Auto) 8.8 H (0-7) % Eos % (Auto) 1.3 (0-6) % Baso % (Auto) 1.1 (0-2) % Absolute Neuts (auto) 4.6 (1.5-7.7) 10^3/ul Absolute Lymphs (auto) 2.8 (1.0-4.8) 10^3/ul Absolute Monos (auto) 0.7 (0-0.8) 10^3/ul Absolute Eos (auto) 0.1 (0-0.6) 10^3/ul Absolute Basos (auto) 0.1 (0-0.2) 10^3/ul Absolute Nucleated RBC 0 10^3/ul Nucleated RBC % 0.1 INR (Anticoag Therapy) 0.98 (0.77-1.02) APTT 40.0 H (26.0-36.3) seconds Sodium 141 (139-145) mmol/L Potassium 3.5 (3.5-5.0) mmol/L Chloride 105 (101-111) mmol/L Carbon Dioxide 26 (22-32) mmol/L Anion Gap 10 (2-11) mmol/L BUN 12 (6-24) mg/dL Creatinine 1.28 H (0.67-1.17) mg/dL Est GFR ( Amer) 85.5 (>60) Est GFR (Non-Af Amer) 66.4 (>60) BUN/Creatinine Ratio 9.4 (8-20) Glucose 110 H (70-100) mg/dL Calcium 9.8 (8.6-10.3) mg/dL Total Bilirubin 0.50 (0.2-1.0) mg/dL AST 28 (13-39) U/L ALT 42 (7-52) U/L Alkaline Phosphatase 48 (34-104) U/L C-Reactive Protein 2.02 (< 5.00) mg/L Total Protein 7.6 (6.4-8.9) g/dL Albumin 4.8 (3.2-5.2) g/dL Globulin 2.8 (2-4) g/dL Albumin/Globulin Ratio 1.7 (1-3) Urine Color Urine Appearance Urine pH (5-9) Ur Specific [place] (1.010-1.030) Urine Protein (Negative) Urine Ketones (Negative) Urine Blood (Negative) Urine Nitrate (Negative) Urine Bilirubin (Negative) Urine Urobilinogen (Negative) Ur Leukocyte Esterase (Negative) Urine WBC (Auto) (Absent) Urine RBC (Auto) (Absent) Urine Bacteria (Absent) Urine Glucose (Negative) Urine Ascorbic Acid 12/01/17 Range/Units 05:41 WBC (3.5-10.8) 10^3/ul RBC (4.0-5.4) 10^6/ul Hgb (14.0-18.0) g/dl Hct (42-52) % MCV (80-94) fL MCH (27-31) pg MCHC (31-36) g/dl RDW (10.5-15) % Plt Count (150-450) 10^3/ul MPV (7.4-10.4) um3 Neut % (Auto) (38-83) % Lymph % (Auto) (25-47) % [place] % (Auto) (0-7) % Eos % (Auto) (0-6) % Baso % (Auto) (0-2) % Absolute Neuts (auto) (1.5-7.7) 10^3/ul Absolute Lymphs (auto) (1.0-4.8) 10^3/ul Absolute Monos (auto) (0-0.8) 10^3/ul Absolute Eos (auto) (0-0.6) 10^3/ul Absolute Basos (auto) (0-0.2) 10^3/ul Absolute Nucleated RBC 10^3/ul Nucleated RBC % INR (Anticoag Therapy) (0.77-1.02) APTT (26.0-36.3) seconds Sodium (139-145) mmol/L Potassium (3.5-5.0) mmol/L Chloride (101-111) mmol/L Carbon Dioxide (22-32) mmol/L Anion Gap (2-11) mmol/L BUN (6-24) mg/dL Creatinine (0.67-1.17) mg/dL Est GFR ( Amer) (>60) Est GFR (Non-Af Amer) (>60) BUN/Creatinine Ratio (8-20) Glucose (70-100) mg/dL Calcium (8.6-10.3) mg/dL Total Bilirubin (0.2-1.0) mg/dL AST (13-39) U/L ALT (7-52) U/L Alkaline Phosphatase (34-104) U/L C-Reactive Protein (< 5.00) mg/L Total Protein (6.4-8.9) g/dL Albumin (3.2-5.2) g/dL Globulin (2-4) g/dL Albumin/Globulin Ratio (1-3) Urine Color Red A Urine Appearance Cloudy Urine pH 7.0 (5-9) Ur Specific [place] 1.018 (1.010-1.030) Urine Protein 3+(>=500 mg/dl) A (Negative) Urine Ketones Trace A (Negative) Urine Blood 2+ A (Negative) Urine Nitrate Negative (Negative) Urine Bilirubin Negative (Negative) Urine Urobilinogen Negative (Negative) Ur Leukocyte Esterase Negative (Negative) Urine WBC (Auto) Absent (Absent) Urine RBC (Auto) 3+(>10/hpf) A (Absent) Urine Bacteria Absent (Absent) Urine Glucose 2+(150 mg/dl) A (Negative) Urine Ascorbic Acid Not Reportable Result Diagrams: 12/01/17 00:37 12/01/17 00:37 Lab Statement: Any lab studies that have been ordered have been reviewed, and results considered in the medical decision making process. Re-Evaluation - Re-Evaluation First Eval Re-Evaluation Time: 00:58 Comment: The haynes was placed and there is bloody urine being expressed. He feels much better. GIGU Course/Dx - Course Course Of Treatment: DR RAMIREZ SAW PATIENT IN THE ED. Assessment/Plan: Medications reviewed. BP noted and advised to follow up with PCP. - Diagnoses Provider Diagnoses: Hematuria, Urinary outflow obstruction, Elevated blood pressure reading without diagnosis of hypertension - Physician Notifications Discussed Care Of Patient With: Bill Ramirez Time Discussed With Above Provider: 00:28 Instructed by Provider To: Other - Recommended placing a haynes catheter and flushing it. Discussed care of pt with Dr. Ramirez again at 0530 who stated that he would come in to evalaute the pt in the ED. Will be admitting the pt. Discharge - Sign-Out/Discharge Documenting (check all that apply): Discharge/Admit/Transfer - Admit - Discharge Plan Condition: Stable Disposition: ADMITTED TO [facility] Referrals: Syl Kapoor MD [Primary Care Provider] - Additional Instructions: Your blood pressure was elevated during todays visit; please follow up with your primary care provider within a week for further evaluation. - Billing Disposition and Condition Condition: STABLE Disposition: [facility] [place] The documentation as recorded by the Eddie cohn Rebecca accurately reflects the service I personally performed and the decisions made by me, Bryan Jimenez MD.
[2017-12-01] MEDS ORDERED: Lidocaine 2% JELLY* 10 ML JELLY TOPICAL ONE (07:10)
[2017-12-01] MEDS ORDERED: Lidocaine 2% VISCOUS* 15 ML UDC ONE (07:14)
[2017-12-01] MEDS ORDERED: Midazolam* 1 MG/ML 5 ML VIAL (5 MG) ONE (08:58)
[2017-12-01] MEDS ORDERED: Dexamethasone IV* 4 MG/ML 1 ML (4 MG) ONE (08:58)
[2017-12-01] MEDS ORDERED: Lidocaine 2% PF * 5 ML VIAL ONE (08:58)
[2017-12-01] MEDS ORDERED: fentaNYL* 50 MCG/ML 2 ML VIAL (100 MCG VIAL) ONE ×3 (08:58→11:16)
[2017-12-01] MEDS ORDERED: Propofol* 10 MG/ML 20 ML BTL IV PUSH ONE (08:58)
[2017-12-01] MEDS ORDERED: Ondansetron INJ* 2 MG/ML VIAL ONE (08:58)
[2017-12-01] MEDS ORDERED: cefTRIAXone(*) 2 GM ADDV.VIAL IVPB ONE (09:36)
[2017-12-01] MEDS ORDERED: Ondansetron ODT TAB* 4 MG PO PRN (10:44)
[2017-12-01] MEDS ORDERED: oxyCODONE/Acetamin 5/325 MG* TAB PO PRN (10:44)
[2017-12-01] MEDS ORDERED: fentaNYL* 50 MCG/ML 2 ML VIAL (100 MCG VIAL) IV PRN (10:44)
[2017-12-01] MEDS ORDERED: Naloxone* 0.4 MG/ML 1 ML VIAL IV PRN (10:44)
[2017-12-01] MEDS ORDERED: HYDROmorphone INJ* 1 MG/ML CARPUJECT SYRINGE IV PRN (10:44)
[2017-12-01] MEDS ORDERED: oxyCODONE/Acetamin 5/325 MG* TAB ONE (12:01)
[2017-12-01 12:17] VITALS: BP 123/62
--- NOTE | 2017-12-02 03:44 | OP ---
DATE OF OPERATION: 12/01/17 [facility] DATE OF : 86 SURGEON: Bill Jc MD ANESTHESIOLOGIST: George Toscano MD ANESTHESIA: General. PRE-OP DIAGNOSES: 1. Gross hematuria. 2. Clot urinary retention. POST-OP DIAGNOSES: 1. Gross hematuria. 2. Clot urinary retention. 3. Bleeding mostly from membranous urethra, and some from posterior bladder neck. OPERATIVE PROCEDURE: 1. Cystoscopy. 2. Evacuation of clot urinary retention. 3. Fulguration of venous bleeders from membranous urethra (2 o'clock) and from posterior bladder neck. INDICATIONS: Mr. Choi is a 27-year-old Afirican-[place]aur[place] male who presented to the emergency room 1 month ago with gross hematuria, urethral bleeding, urinary retention. A Pitts catheter could not be placed. He was transferred to [facility] where he was taken to the operating room by Dr. Villatoro. The OP note described some hematuria originating from the bladder neck and from the prostatic urethra distal to the verumontanum with catheter trauma noted. The patient was discharged home on a Pitts catheter. Following removal of the Pitts catheter, he came back with recurrence of the clot urinary retention, and was again taken to the operating room by Dr. Villatoro on 11/08/17. Cystoscopy again showed bleeding points from the bladder neck and the prostatic urethra, and the spots were fulgurated. The patient was sent home without the Iptts catheter. He presented to [facility] Emergency Room on 11/22/17. He had a large amount of clot urinary retention. Noncontrast CT of the abdomen and pelvis showed no renal masses, no hydronephrosis, no calculi, and the ureters looked normal. Large blood clots were noted inside his bladder. I saw him in the ER that day, inserted a 24- Pitts catheter, irrigated out multiple blood clots. He was observed in the ER for 2 hrs, his urine remained clear. He did not need to go to the OR, and was discharged home on catheter drainage. The Pitts was kept in place for 1 week and it was removed in my office 3 days ago. Following removal of the Pitts, he did well well with clear urine until early this morning when he presented to the emergency room with recurrent clot urinary retention. The bladder could not be well irrigated. He continued to have gross hematuria and clot retention and he was taken to the operating room on an urgent basis for the above procedure. PATHOLOGY AT CYSTOSCOPY: The penile and bulbar urethrae looked normal. There was a disrupted mucosal flap at 2 o'clock at the level of the membranous urethra just distal to the veru where a significant amount of venous bleeding was noted. That seemed to be the major source of the hematuria. The prostatic urethra was short and open. There was slight hyperemia of the prostatic urethral mucosa, but no active bleeding was noted. Multiple clots were noted inside the bladder. Following evacuation of the clot retention, there were a few venous bleeding points in the posterior bladder neck, but they seemed to be traumatic from the catheter rather than being the major source of his hematuria. The ureteral orifices looked normal. There was clear efflux noted from both orifices indicating that the active gross hematuria is not ureteral or renal in origin. The rest of the bladder wall looked normal. There was expected catheter reaction. No suspicious bladder lesions were seen. No calculi or diverticula were noted. Following fulguration of the major bleeder in the membranous urethra, the hematuria resolved. DESCRIPTION OF PROCEDURE: After successful general anesthesia, the patient was placed in the lithotomy position and was prepped and draped for a cystoscopy. Cystoscopy was performed. The findings in the membranous urethra were noted. The scope was then entered inside the bladder. The bladder was irrigated until all the clots were evacuated. Careful inspection of the bladder showed the above findings namely some venous oozing from the posterior bladder neck. The ureteral orifices were well visualized and clear efflux was confirmed. The bladder was also carefully inspected and no suspicious lesions were seen. Using the Bugbee electrode, the bleeders in the posterior bladder neck and the bleeder in the membranous urethra at 2 0' clock were also fulgurated and all the bleeding were controlled. Very careful fulguration was carried in the membranous urethra to avoid any potential damage to the external sphincter. After a final inspection, which showed no bleeding points and no residual clots , the cystoscope was removed and a size 22-Spanish Pitts catheter was passed inside the bladder and the balloon inflated with 15 mL of water. Irrigation yielded clear returns. The patient tolerated the procedure and left the operating room in good condition. There were no specimens. The recurrent bleeding from what seems like a urethral traumatic finding is unusual. The site of bleeding did not look suspicious for any lesion and it did not seem there was a communication with the corpus cavernosum. The plan is to leave the catheter in 10 days. It will be removed in the office. The patient will be observed afterwards for possible recurrence of the hematuria. [id number]/CPS #: [id number] MTDD
== END 2017-12-01 12:44 | disposition home or self-care (01) ==
LOC: ED 23:47 → OR 12-01 08:59
PROVIDERS: ATTEND Urology
DX: R31.0 Gross hematuria (principal); N32.89 Other specified disorders of bladder; R33.8 Other retention of urine; R30.0 Dysuria; Z72.0 Tobacco use; R03.0 Elevated blood-pressure reading, without diagnosis of hypertension
CPT/HCPCS: 36415; 80053; 81003; 81015; 85025; 85610; 85730; 86140; 96374; 96375; 99283; A9270-GY; J0696; J1100; J1170; J2250; J2405; J2704; J3010

== ENCOUNTER 2019-04-27 05:00 | Emergency (ER) | payer BC, OTHER ==
--- OUTSIDE RECORDS SUMMARY | 2019-04-27 05:11 | XMS REPORT | Continuity of Care Document ---
:1990 External Reference #:[id number] Author Name Derrek Nolasco MD (transmitted by agent of provider Marcell Hawkins) Address [address] [place] [id number] Care Team Providers Name Role Phone Syl Kapoor MD - Internal Care Team Information Executive Sales Assistant [phone] Medicine Problems Description No Active Problems Social History Type Date Description Comments Sex Unknown ETOH Use Occasionally consumes alcohol Recreational Drug Use Denies Drug Use Tobacco Use Start: Unknown End: Patient is a former smoker Unknown Smoking Uses E-cig Tobacco Use Start: Unknown Patient was a smoker, current status is unknown Smoking Status Reviewed: 03/05/19 Patient was a smoker, current status is unknown Exercise Type/Frequency Exercises regularly Allergies, Adverse Reactions, Alerts Description No Known Drug Allergies Medications Active Medications SIG Qnty Indications Ordering Provider Date Ibuprofen Unknown Medications Administered in Office Medication SIG Qnty Indications Ordering Provider Date Depomedrol 40MG Derrek Nolasco MD 07/27/2018 Injection Triamcinolone (Kenalog) Naseem Rueda MD 09/16/2017 Injection Immunizations CPT Code Status Date Vaccine Lot # [id number] Given 06/27/2018 Influenza Virus Vaccine, Quadrivalent, Split, [id number] Preservative Free [id number] Given 08/02/2017 Influenza Virus Vaccine, Quadrivalent, Split, Preservative Free Vital Signs Date Vital Result Comment 03/05/2019 3:25pm Height 75 inches 6'3" Weight 291.00 lb Heart Rate 78 /min Respiratory Rate 16 /min Body Temperature 97.8 F Pain Level 8 BMI (Body Mass Index) 36.4 kg/m2 02/23/2019 3:01pm Height 75 inches 6'3" Weight 291.25 lb Heart Rate 72 /min BP Systolic 130 mmHg BP Diastolic 75 mmHg Body Temperature 97.6 F O2 % BldC Oximetry 96 % BMI (Body Mass Index) 36.4 kg/m2 Results Description No Information Available Procedures Description No Information Available Medical Devices Description No Information Available Encounters Type Date Location Provider Dx Diagnosis 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 F43.0 Acute stress 2:40p Medicine - Ccmob reaction Office Visit 02/07/2019 Orthopedic Derrek Tay S89.92xA Unspecified injury 2:[facility] of left lower leg, initial encounter M25.562 Pain in left knee S83.92xA Sprain of unspecified site of left knee, initial encounter Assessments Date Code Description Provider 03/05/2019 M25.562 Pain in left knee Derrek Nolasco MD 03/05/2019 M25.562 Pain in left knee Derrek Nolasco MD 02/23/2019 F43.0 Acute stress reaction Jhonny Meek NP 02/07/2019 S89.92xA Unspecified injury of left lower leg, Derrek Nolasco MD initial encounter 02/07/2019 M25.562 Pain in left knee Derrek Nolasco MD 02/07/2019 S83.92xA Sprain of unspecified site of left knee, Derrek Nolasco MD initial encounter Plan of Treatment Future Appointment(s):05/10/2019 9:45 am - [facility] - Derrek Nolasco, MDM25.562 Pain in left kneeNew Therapy:Physical TherapyFollow up:Follow up: 2 months Functional Status Description No Information Available Mental Status Description No Information Available Referrals Refer to Reason for Referral Status Appt Date [facility] [address] [place] [address] [phone]
--- NOTE | 2019-04-27 06:04 | ED ---
Lower Extremity - HPI Summary HPI Summary: Pt. is a 28 y.o male who presents to the ER for intermittent left foot pain x one month. Pt. does not recall any specific injuries or falls. Pt. states there are no modifying factors. 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 Pt. states pain is only located to top of foot and does not radiate. Pain is sharp in nature and comes and goes. Pt. states pain started tonight and he could not sleep so presents for evaluation. Sxs are mild in severity. No past hx. Denies fever, redness, swelling, wounds. - History of Current Complaint Chief Complaint: EDExtremityLower Stated Complaint: SEVERE PAIN IN FOOT PER PT Time Seen by Provider: 04/27/19 05:37 Hx Obtained From: Patient Pain Intensity: 8 - Allergies/Home Medications Allergies/Adverse Reactions: Allergies Allergy/AdvReac Type Severity Reaction Status Date / Time No Known Allergies Allergy Verified 02/22/19 11:50 PMH/Surg Hx/FS Hx/Imm Hx Previously Healthy: Yes Endocrine/Hematology History: Denies: Hx Diabetes Cardiovascular History: Denies: Hx Hypertension, Hx Pacemaker/ICD History: Denies: Hx Dialysis, Hx Renal Disease Sensory History: Denies: Hx Contacts or Glasses, Hx Hearing Aid Opthamlomology History: Denies: Hx Contacts or Glasses Psychiatric History: Denies: Hx Panic Disorder - Surgical History Surgery Procedure, Year, and Place: 2008 RT SHOULDER LABRUM REPAIR CALIF X2. BLADDER - - CAUTERIZED BLOOD COTS Hx Anesthesia Reactions: No Infectious Disease History: No Infectious Disease History: Denies: Traveled Outside the [place] in Last 30 Days - Family History Known Family History: Positive: Non-Contributory Negative: Other - disease - Social History Occupation: Employed Full-time Lives: With Family Alcohol Use: Daily Alcohol Amount: 1 per day Substance Use Type: Reports: None Smoking Status (MU): Current Every Day Smoker Review of Systems Constitutional: Negative Negative: Fever, Chills Positive: Other - Intermittent left foot pain. Skin: Negative Neurological: Negative Negative: Weakness, Paresthesia, Numbness All Other Systems Reviewed And Are Negative: Yes Physical Exam Triage Information Reviewed: Yes Vital Signs On Initial Exam: Initial Vitals Temp Pulse Resp BP Pulse Ox 96.4 F 75 18 158/96 100 04/27/19 05:01 04/27/19 05:01 04/27/19 05:01 04/27/19 05:01 04/27/19 05:01 Vital Signs Reviewed: Yes Appearance: Positive: Well-Appearing - Pt lying in beed in NAD. Skin: Positive: Warm, Dry Head/Face: Positive: Normal Head/Face Inspection Eyes: Positive: Normal, EOMI Neck: Positive: Supple Musculoskeletal: Positive: Other - Good pedal left foot. No reproducible pain. No erythema, increased warmth, edema, wounds. No plantar pain. No pain to achilles tendon. No calf pain or edema. Neurological: Positive: Normal, CN Intact II-III Psychiatric: Positive: Affect/Mood Appropriate Procedures - Sedation Patient Received Moderate/Deep Sedation with Procedure: No Diagnostics - Vital Signs Vital Signs Temp Pulse Resp BP Pulse Ox 04/27/19 05:01 96.4 F 75 18 158/96 100 - Laboratory Lab Statement: Any lab studies that have been ordered have been reviewed, and results considered in the medical decision making process. Lower Extremity Course/Dx - Course Course Of Treatment: Patient presenting with atraumatic left foot pain. No signs of infection or trauma on exam. Patient currently has 0 pain in the ER and has no reproducible pain on exam. X-ray foot is negative for acute findings , reading per myself and Dr. Taylor, pending official radiology read. Unclear foot etiology at this time. Recommend patient wear supportive footwear, ice and elevate intermittently. Anti-inflammatories for pain as directed. Patient does have an appointment with his PCP on Tuesday. Recommend referral to podiatry for further evaluation and testing. Patient understands and agrees with plan. - Diagnoses Differential Diagnosis/HQI/PQRI: Positive: Contusion, Fracture (Closed), Gout, Sprain, Strain Provider Diagnoses: Foot pain Discharge ED - Sign-Out/Discharge Documenting (check all that apply): Patient Departure - Discharge Plan Condition: Good Disposition: HOME Patient Education Materials: Foot Sprain (ED) Forms: *Work Release Referrals: Jhonny Meek NP [Primary Care Provider] - Additional Instructions: Follow up with your PCP on Tuesday as scheduled for referral to podiatry for further evaluation Recommend supportive foot wear Ice and elevate Tylenol or Motrin for pain as directed Return to ER if symptoms change or worsen - Billing Disposition and Condition Condition: GOOD Disposition: Home
[2019-04-27 06:41] VITALS: BP 135/91
== END 2019-04-27 06:37 | disposition home or self-care (01) ==
LOC: ED 05:00
DX: M79.672 Pain in left foot (principal); F17.210 Nicotine dependence, cigarettes, uncomplicated
CPT/HCPCS: 99282

== ENCOUNTER 2019-05-22 14:28 | Emergency (ER) | payer BC, OTHER ==
--- OUTSIDE RECORDS SUMMARY | 2019-05-22 14:36 | XMS REPORT | Continuity of Care Document ---
:1990 External Reference #:[id number] Author Name Jhonny Meek NP (transmitted by agent of provider Lea Becerra) Address [address], [place] [address] Care Team Providers Name Role Phone Syl Kapoor MD - Internal Care Team Information Arts Therapist Medicine Problems Description No Active Problems Social History Type Date Description Comments Sex Unknown ETOH Use Occasionally consumes alcohol Recreational Drug Use Denies Drug Use Tobacco Use Start: Unknown End: Patient is a former smoker Unknown Smoking Uses E-cig Tobacco Use Start: Unknown Patient was a smoker, current status is unknown Smoking Status Reviewed: 04/27/19 Patient was a smoker, current status is unknown Exercise Type/Frequency Exercises regularly Allergies, Adverse Reactions, Alerts Description No Known Drug Allergies Medications Active Medications SIG Qnty Indications Ordering Provider Date Gabapentin 1 by mouth QHS. If 30caps M79.672 Jhonny Meek NP 04/27/2019 300mg tolerated increase Capsules to twice daily after three days. Chantix Starting one 0.5 mg tab QS F17.210 Jhonny Meek NP 04/27/2019 Month Brandon every day for 3 0.5mg X 11 days, one 0.5 mg & 1 mg X 42 Tablets tab twice a day for 4 days, one 1 mg tab twice a day every day after Chantix Continuing 1 by mouth twice a 60tabs F17.210 Jhonny Meek NP 2018 Month Brandon day 1mg Tablets Tramadol HCL 1-2 tablets every 28tabs M79.672 Jhonny Meek NP 04/27/2019 50mg 12 hours as needed Tablets for pain. Lidocaine apply to affected 60gm M79.672 Jhonny Meek NP 04/27/2019 4% Cream areas 3 or 4 times daily Ibuprofen Unknown Medications Administered in Office Medication SIG Qnty Indications Ordering Provider Date Depomedrol 40MG Derrek Nolasco MD 03/05/2019 Injection Depomedrol 40MG Derrek Nolasco MD 07/27/2018 Injection Triamcinolone (Kenalog) Naseem Rueda MD 09/16/2017 Injection Immunizations CPT Code Status Date Vaccine Lot # [id number] Given 06/27/2018 Influenza Virus Vaccine, Quadrivalent, Split, [id number] Preservative Free [id number] Given 08/02/2017 Influenza Virus Vaccine, Quadrivalent, Split, Preservative Free Vital Signs Date Vital Result Comment 04/27/2019 11:41am Height 75 inches 6'3" Weight 283.00 lb Heart Rate 72 /min BP Systolic 124 mmHg BP Diastolic 79 mmHg Body Temperature 97.0 F O2 % BldC Oximetry 96 % BMI (Body Mass Index) 35.4 kg/m2 03/05/2019 3:25pm Height 75 inches 6'3" Weight 291.00 lb Heart Rate 78 /min Respiratory Rate 16 /min Body Temperature 97.8 F Pain Level 8 BMI (Body Mass Index) 36.4 kg/m2 Results Description No Information Available Procedures Date Code Description Status 03/05/2019 02458 Inject/Drain Joint/Bursa Major W/O US Completed Medical Devices Description No Information Available Encounters Type Date Location Provider Dx Diagnosis Office Visit 03/05/2019 [facility] M25.562 Pain in left knee 2:45p at [facility] Nolasco MD S80.02xD Contusion of left knee, subsequent encounter M25.562 Pain in left knee Office Visit 02/23/2019 [facility] Jhonny Meek NP F43.0 Acute stress 2:40p Medicine - [facility] reaction Office Visit 02/07/2019 [facility] S89.92xA Unspecified 2:30p [facility] at [facility] injury of left [place] lower leg, initial encounter M25.562 Pain in left knee S83.92xA Sprain of unspecified site of left knee, initial encounter Assessments Date Code Description Provider 04/27/2019 M79.672 Pain in left foot Jhonny Meek NP 04/27/2019 F17.210 Nicotine dependence, cigarettes, Jhonny Meek NP uncomplicated 03/05/2019 M25.562 Pain in left knee Derrek Nolasco MD 03/05/2019 S80.02xD Contusion of left knee, subsequent Derrek Nolasco MD encounter 03/05/2019 M25.562 Pain in left knee Derrek Nolasco MD 02/23/2019 F43.0 Acute stress reaction Jhonny Meek NP 02/07/2019 S89.92xA Unspecified injury of left lower leg, Derrek Nolasco MD initial encounter 02/07/2019 M25.562 Pain in left knee Derrek Nolasco MD 02/07/2019 S83.92xA Sprain of unspecified site of left knee, Derrek Nolasco MD initial encounter Plan of Treatment Future Appointment(s):05/03/2019 3:40 pm - Jhonny Meek NP at [facility] Internal Medicine - [facility]05/10/2019 9:45 am - Derrek Nolasco MD at [facility] at [place]/27/2019 - Jhonny Meek NPM79.672 Pain in left footNew Medication:Gabapentin 300 mg - 1 by mouth QHS. If tolerated increase to twice daily after three days.Tramadol HCL 50 mg - 1-2 tablets every 12 hours as needed for pain.Lidocaine 4 % - apply to affected areas 3 or 4 times dailyComments:I have referred you to the excellence specialist we discussed.Try using the gabapentin. Start with one capsule before bed and if tolerated after three days take it twice daily. If the pain is sever at night you can use the tramadol.Referral:Sai Altamirano MD, Surgery,WbhwjrgdmfZ43.210 Nicotine dependence, cigarettes, uncomplicatedNew Medication:Chantix Starting Month Brandon 0.5 mg X 11 & 1 mg X 42 - one 0.5 mg tab every day for 3 days, one 0.5 mg tab twice a day for 4 days, one 1 mg tab twice a day every day afterChantix Continuing Month Brandon 1 mg - 1 by mouth twice a dayComments:I have prescribed the Chantix. Let me know if you have any issues with that. Functional Status Description No Information Available Mental Status Description No Information Available Referrals Refer to Reason for Referral Status Appt Date Sai Altamirano MD Created [address] [place] [address] [phone] [facility] Sent [address] [place] [address] [phone]
--- OUTSIDE RECORDS SUMMARY | 2019-05-22 14:36 | XMS REPORT | Continuity of Care Document ---
:1990 External Reference #:[id number] Author Name Derrek Nolasco MD (transmitted by agent of provider Marcell Hawkins) Address [address] [place] [id number] Care Team Providers Name Role Phone Syl Kapoor MD - Internal Care Team Information Visual Associate Medicine Problems Description No Active Problems Social History Type Date Description Comments Sex Unknown ETOH Use Occasionally consumes alcohol Recreational Drug Use Denies Drug Use Tobacco Use Start: Unknown End: Patient is a former smoker Unknown Smoking Uses E-cig Tobacco Use Start: Unknown Patient was a smoker, current status is unknown Smoking Status Reviewed: 05/10/19 Patient was a smoker, current status is unknown Exercise Type/Frequency Exercises regularly Allergies, Adverse Reactions, Alerts Description No Known Drug Allergies Medications Active Medications SIG Qnty Indications Ordering Provider Date Voltaren apply 4 gm to the 900gm M79.672 Derrek Tay 05/10/2019 1% Gel affected area 4 [facility] times a day as needed for pain Gabapentin 1 by mouth QHS. If 30caps [...] CPT Code Status Date Vaccine Lot # [id number] Given 06/27/2018 Influenza Virus Vaccine, Quadrivalent, Split, [id number] Preservative Free [id number] Given 08/02/2017 Influenza Virus Vaccine, Quadrivalent, Split, Preservative Free Vital Signs Date Vital Result Comment 05/10/2019 9:49am Height 75 inches 6'3" Weight 275.00 lb stated Heart Rate 70 /min BP Systolic 132 mmHg BP Diastolic 78 mmHg Respiratory Rate 12 /min Pain Level 0 BMI (Body Mass Index) 34.4 kg/m2 04/27/2019 11:41am Height 75 inches 6'3" Weight 283.00 lb Heart Rate 72 /min BP Systolic 124 mmHg BP Diastolic 79 mmHg Body Temperature 97.0 F O2 % BldC Oximetry 96 % BMI (Body Mass Index) 35.4 kg/m2 Results Description No Information Available Procedures Date Code Description Status 03/05/2019 86908 Inject/Drain Joint/Bursa Major W/O US Completed Medical Devices Description No Information Available Encounters Type Date Location Provider Dx Diagnosis Office Visit 04/27/2019 [facility] Jhonny Meek NP M79.672 Pain in left foot 11:40a Medicine - [facility] R20.8 Other disturbances of skin sensation F43.0 Acute stress reaction F17.210 Nicotine dependence, cigarettes, uncomplicated Office Visit 03/05/2019 2:45p [facility] Derrek Tay M25.562 Pain in at [facility] MD left knee S80.02xD Contusion of left knee, subsequent encounter M25.562 Pain in left knee Office Visit 02/23/2019 [facility] Jhonny Meek NP F43.0 Acute stress 2:40p Medicine - Ccmob reaction Office Visit 02/07/2019 [place] Derrek Jasvir S89.92xA Unspecified 2:30p [facility]oped[facility] at [facility] injury of left [place] lower leg, initial encounter M25.562 Pain in left knee S83.92xA Sprain of unspecified site of left knee, initial encounter Assessments Date Code Description Provider 05/10/2019 M79.672 Pain in left foot Derrek Nolasco MD 04/27/2019 M79.672 Pain in left foot Jhonny Meek NP 04/27/2019 R20.8 Other disturbances of skin sensation Jhonny Meek NP 04/27/2019 F43.0 Acute stress reaction Jhonny Meek NP 04/27/2019 F17.210 Nicotine dependence, [...] MD initial encounter Plan of Treatment Future Appointment(s):05/24/2019 10:15 am - Mehdi Martinez M.D. at [facility] at [place]105/10/2019 - Derrek Nolasco, MDM79.672 Pain in left footNew Medication:Voltaren 1 % - apply 4 gm to the affected area 4 times a day as needed for painFollow up:Follow up: with Juan/Evelia Functional Status Description No Information Available Mental Status Description No Information Available Referrals Refer to Reason for Referral Status Appt Date Sai Altamirano MD Sent 05/07/2019 [address] [place] [address] [phone] [facility] Sent [address] [place] [address] [phone]
[2019-05-22 14:47] VITALS: BP 141/92
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
== END 2019-05-22 16:24 | disposition home or self-care (01) ==
LOC: UCEAST 14:28
DX: S06.0X0A Concussion without loss of consciousness, initial encounter (principal); F17.210 Nicotine dependence, cigarettes, uncomplicated; R11.0 Nausea; W50.0XXA Accidental hit or strike by another person, initial encounter; Y92.9 Unspecified place or not applicable
CPT/HCPCS: 70450; 99211; G0463